=== PATIENT | female | born 1980 | race Caucasian/White ===

== ENCOUNTER → 2017-05-21 | Outpatient (CLI) | payer OTHER | LOC: FIMAGING 11:32 | PROVIDERS: ATTEND Obstetrics & Gynecology | DX: O09.522 Supervision of elderly multigravida, second trimester (principal); Z3A.19 19 weeks gestation of pregnancy ==

== ENCOUNTER → 2017-08-03 | Outpatient (CLI) | payer OTHER | LOC: FIMAGING 08:46 | PROVIDERS: ATTEND Obstetrics & Gynecology | DX: O09.523 Supervision of elderly multigravida, third trimester (principal); Z3A.30 30 weeks gestation of pregnancy ==

== ENCOUNTER 2017-10-09 05:03 | Inpatient (IN) | payer OTHER ==
[2017-10-09] MEDS ORDERED: TERBUTALINE SULFATE 1 MG/ML VIAL IV PRN (05:19)
[2017-10-09] MEDS ORDERED: OLIVE OIL 118 ML BTL MISC PRN (05:19)
[2017-10-09] MEDS ORDERED: OXYTOCIN 20 UNIT in LR 1,000 ML IV PRN (05:19)
[2017-10-09] MEDS ORDERED: LR 1,000 ML IV PRN (05:19)
[2017-10-09] MEDS ORDERED: IBUPROFEN 600 MG TAB PO PRN (05:19)
[2017-10-09] MEDS ORDERED: EPSOM SALT 454 GM TP PRN (05:19)
[2017-10-09] MEDS ORDERED: LIDOCAINE 1% 300 MG/30 ML SDV ONE (05:38)
[2017-10-09] MEDS ORDERED: OLIVE OIL 118 ML BTL ONE (05:38)
[2017-10-09] MEDS ORDERED: AMMONIA AROMATIC 1 EACH AMP IH ONE (05:38)
[2017-10-09] MEDS ORDERED: OXYTOCIN 10 UNIT/ML VIAL ONE (05:38)
[2017-10-09] MEDS ORDERED: MISOPROSTOL 200 MCG TAB ONE (05:39)
[2017-10-09 05:42] LABS: PLATELET COUNT 152 10^3/uL (150-400)
[2017-10-09] MEDS ORDERED: fentaNYL 100 MCG/2 ML INJ ONE (05:54)
[2017-10-09] MEDS ORDERED: BUPIVACAINE 0.25% 30 ML SDV ONE (05:55)
[2017-10-09] MEDS ORDERED: PHENYLEPHRINE HCL 100 MCG/ML SYR ONE (05:55)
[2017-10-09] MEDS ORDERED: fentaNYL 2MCG/ML/BUP 0.1% RTU 100 ML BAG EP ONE (05:56)
--- NOTE | 2017-10-09 06:45 | PREANESOB ---
Obstetric Pre-Anesthesia Info - General Info Proposed Procedure: Labor Epidural : 3 Para: 2 CAIN: 10/09/17 Gestational Age: 40 week(s) and 0 day(s) - Info Status: Full Term Monitors: External - Labor Status Cervical Dilation per last OB SVE: 8 Amniotic Fluid Color: Clear PIH: No Magnesium Sulfate in Use: No Indications for Labor Analgesia: Pain Control Labor Epidural: Yes, Proposed Anesthesia Allergies/Adverse Reactions: Allergy/AdvReac Type Severity Reaction Status Date / Time No Known Allergies Allergy Unverified 10/09/17 05:18 Visit Medications: Generic Name Dose Route Start Last Admin Trade Name Freq PRN Reason Stop Dose Admin Lactated Ringer's 1,000 mls @ 0 mls/hr 10/09/17 05:19 Lr IV 10/10/17 05:18 PRN PRN SEE PROTOCOL CONDITIONS Protocol Per Protocol Oxytocin 20 unit/ Lactated 1,002 mls @ 150 mls/hr 10/09/17 05:19 Ringer's IV PRN PRN Post- bleeding Ibuprofen 600 mg 10/09/17 05:19 Motrin PO 04/07/18 05:18 Q6HRS PRN post , inflammation Magnesium Sulfate 454 gm 10/09/17 05:19 Epsom Salt TP 04/07/18 05:18 Q1H PRN perineal discomfort [place] Oil 118 ml 10/09/17 05:19 Sweet Oil MISC 04/07/18 05:18 ONCE PRN perineal massage Terbutaline Sulfate 0.25 mg 10/09/17 05:19 Brethine IV 04/07/18 05:18 ONCE PRN Tachysystole Discontinued Medications Generic Name Dose Route Start Last Admin Trade Name Freq PRN Reason Stop Dose Admin Ammonia (Aromatic Spirit) Confirm 10/09/17 05:38 Ammonia Aromatic Administered 10/09/17 05:39 Dose 1 each IH .STK-MED ONE Bupivacaine HCl Confirm 10/09/17 05:55 Sensorcaine 0.25% Sdv Administered 10/09/17 05:56 Dose 30 ml .ROUTE .STK-MED ONE Fentanyl Confirm 10/09/17 05:54 Sublimaze Administered 10/09/17 05:55 Dose 100 mcg .ROUTE .STK-MED ONE Fentanyl/Bupivacaine HCl Confirm 10/09/17 05:56 Fentanyl/Bupivacaine/Ns 2 Mcg/Ml 0.1% (Premix Administered 10/09/17 05:57 Dose 100 ml EP .STK-MED ONE Lidocaine HCl Confirm 10/09/17 05:38 Lidocaine Hcl 1% Administered 10/09/17 05:39 Dose 300 mg .ROUTE .STK-MED ONE Misoprostol Confirm 10/09/17 05:39 Cytotec Administered 10/09/17 05:40 Dose 800 mcg .ROUTE .STK-MED ONE [place] Oil Confirm 10/09/17 05:38 Sweet Oil Administered 10/09/17 05:39 Dose 118 ml .ROUTE .STK-MED ONE Oxytocin Confirm 10/09/17 05:38 Pitocin Administered 10/09/17 05:39 Dose 40 unit .ROUTE .STK-MED ONE Phenylephrine HCl Confirm 10/09/17 05:55 Neosynephrine Administered 10/09/17 05:56 Dose 1,000 mcg .ROUTE .STK-MED ONE - Anesthesia History Response to Local Anesthetics: Normal Anesthesia & Operative History: No Prior Problems Family Anesthesia History: Negative - Social History Substance Use/Abuse: Denies - Vital Signs Latest Vital Signs (Nursing): See Nursing Vitals in [facility]. Height/Weight (Nursing): Height 165 cm Weight 74 kg - Focused Exam Neck exam: FROM Mallampati Score: Class 2 Mouth exam: normal dental/mouth exam Pulmonary: no respiratory distress Cardiovascular: regular rate and rhythym Labs: 10/09/17 05:33 Patient ABO/Rh A POSITIVE 10/09/17 05:33 - Plan Consent Signed and on Chart: Yes Patient/Guardian Understands and Agrees to Plan: Yes Urgent/Emergent Case: Carmel duff completed preop but documented later for safe timely pt care
[2017-10-09] MEDS ORDERED: NALOXONE HCL 0.4 MG/ML INJ IVP PRN (06:47)
[2017-10-09] MEDS ORDERED: PHENYLEPHRINE HCL 100 MCG/ML SYR IVP PRN (06:47)
[2017-10-09] MEDS ORDERED: ONDANSETRON 4 MG/2 ML VIAL IVP PRN (06:47)
--- NOTE | 2017-10-09 06:56 | POSTANESTH ---
Post Anesthetic Evaluation Cardiovascular Status: Normal, Stable, Similar to Pre-Op Cond Respiratory Status: Normal, Stable, Similar to Pre-op Cond. Level of Consciousness/Mental Status: Can Participate in Eval, Alert and Oriented Pain Control: Adequate, Prn Tx Ordered Nausea/Vomiting Control: Adequate, Prn Tx Ordered Complications Possibly Related to Anesthesia: None Noted (Patient tolerated procedure well.)
[2017-10-09] MEDS ORDERED: fentaNYL 2MCG/ML/BUP 0.1% RTU 100 ML EP SCH (07:00)
[2017-10-09] MEDS ORDERED: LR 500 ML IV SCH (07:00)
--- NOTE | 2017-10-09 07:30 | GHP ---
[f rep st] HISTORY AND PHYSICAL DATE OF ADMISSION: 10/09/2017 ADMITTING DIAGNOSES: 1. Intrauterine at 40 weeks in active labor. 2. Advanced maternal age. HISTORY OF PRESENT ILLNESS: Patient is a 37-year-old, 3, para 2-0-0-2 at 40 weeks with estimated due date 10/09/2017 by LMP 01/09/17 and consistent with an 8-week ultrasound. The patient presents with complaints of contractions that began at 0330 this am, increasing in frequency and intensity. The patient denies any leakage of fluid or vaginal bleeding. States good movement. The patient does present with her sheet rock sander, Elsie Kirkland, as well as her . The patient transferred care to [facility] at 36 weeks from [facility] secondary to history or rapid labor with G2 and worries about making it to [place]. is complicated by AMA. All genetic testing was negative. Twenty-week ultrasound was normal. The patient developed anemia of , is tolerating iron. The patient received Tdap during the . GBS culture is negative. PAST OBSTETRIC HISTORY: G1 was a forcep-assisted vaginal delivery over mediolateral episiotomy. G2 was a vacuum-assisted vaginal delivery over mediolateral episiotomy with rapid labor of 4 hours. GYNECOLOGIC HISTORY: Age of menarche 9. Cycles are regular, every 28 days for 5 days. Patient denies a history of abnormal Pap smears, or any exposure to sexually transmitted diseases. CURRENT MEDICATIONS: vitamins. DHA. Iron/ ALLERGIES: No known drug allergies. MEDICAL HISTORY: Unremarkable. SURGICAL HISTORY: T&A at 3 years of age. FAMILY HISTORY: Noncontributory. LABS: Patient is A positive. Antibody negative. HIV negative. RPR nonreactive. Rubella immune. Hepatitis B surface antigen negative. Innatal screen was negative. H/H 11.5/34.0. 1-hour Glucola 73. GBS culture negative. REVIEW OF SYSTEMS: Ten-point review of systems is negative. Pertinent positives noted in HPI. PHYSICAL EXAMINATION: ON ADMISSION, VITAL SIGNS: Stable. Patient is afebrile , well-nourished, well-developed female, alert and oriented x3. Moderate distress secondary to contractions. CARDIOVASCULAR: Regular rate and rhythm. LUNGS: Clear to auscultation bilaterally. ABDOMEN: Gravid, soft, nontender. PELVIC: On exam, she is found to be 7-8 cm, 100%, 0 station with bulging bag. EXTREMITIES: Normal to inspection without calf tenderness. On the monitor, heart tones are Category 1 tracing, baseline of 130 beats per minute. Positive accelerations. No decelerations. Moderate variability. On toco, there are contractions every 2-3 minutes. ASSESSMENT AND PLAN: The patient is a 37-year-old, 3, para 2-0-0-2 at 40 weeks, who presents in active labor. 1. Admit to Labor and Delivery for expectant management. 2. GBS is negative. No prophylactic antibiotics are needed. 3. Reviewed wish list. 4. Patient desires an epidural. 5. Anticipate normal spontaneous vaginal delivery. /[id number]/MODL MTDD
--- NOTE | 2017-10-09 09:27 | OBDEL ---
Info Type: Vaginal Presentation at Delivery: Vertex L&D Analgesia/Anesthesia Type: Epidural (Combo spinal) GBS+: No - Hospital Course Intrapartum: 10/09/17 09:23 IUP @ 40 weeks in active labor; AMA; GBS neg Indications for Delivery: Spontaneous Labor Vaginal Delivery - Delivery Provider Delivery Physician/CNM: Tamia Pierson - Labor and Delivery Onset of Contractions Date: 10/09/17 Onset of Contractions Time: 03:30 Onset of Contractions Type: Spontaneous Rupture of Membranes Date: 10/09/17 Rupture of Membranes Time: 07:00 Rupture of Membranes Type: Artificial Amniotic Fluid Color: Clear Dilation Complete Date: 10/09/17 Dilation Complete Time: 08:00 Placenta Delivery Date: 10/09/17 Placenta Delivery Time: 08:56 Total Hours of Labor: 5 Non-surgical Procedures: Amniotomy Episiotomy: Midline Repair: 3-0, Vicryl Vaginal Sponge Count Correct: Yes Vaginal Needle Count Correct: Yes Vaginal Sweep Performed: Yes EBL: 350 cc Delivery Events: None Delivery Comment: Uncomplicated over MLE; no nuchal cord. ALMA ROSA. Delayed cord clamping x 60 sec. Placenta delivered intact spontaneously with 3-vc. Data CAIN: 10/09/17 Gestational Age: 40 week(s) and 0 day(s) Castillo Delivery Date: 10/09/17 Delivery Time: 08:52 Sex of Infant: Female Score (1 Min): 9 Score (5 Min): 10 ICD10 Worksheet Patient Problems: Problems Problem Status Onset (spontaneous vaginal delivery) Acute - ICD10 Problem Qualifiers (1) (spontaneous vaginal delivery)
[2017-10-09] MEDS ORDERED: HYDROCORTISONE 0.5% CREAM TP PRN (09:31)
[2017-10-09] MEDS ORDERED: SIMETHICONE 80 MG TAB CHEW PO PRN (09:31)
[2017-10-09] MEDS: IBUPROFEN 600 MG TAB PO PRN ×2 (17:38→23:40)
[2017-10-09] MEDS: DOCUSATE SODIUM 100 MG CAP PO PRN (23:41)
[2017-10-09] MEDS: HYDROCODONE/APAP 5/325 TAB PO PRN (23:43)
[2017-10-10] MEDS: IBUPROFEN 600 MG TAB PO PRN ×3 (05:52→19:14)
[2017-10-10] MEDS: HYDROCODONE/APAP 5/325 TAB PO PRN (05:54)
[2017-10-10 07:34] VITALS: RESP 16
--- NOTE | 2017-10-10 09:27 | OBPP ---
Progress Note Assessment/Plan: Assessment: Post day 1 s/p Stable afebrile Plan: 10/10/17 09:21 Continue routine post care Subjective/ Course: 10/10/17 09:22 No complaints tolerating diet and ambulating Objective: 10/09/17 05:33 Patient ABO/Rh A POSITIVE 10/09/17 05:33 Temp Pulse Resp BP Pulse Ox 36.1 C 75 16 114/66 94 10/10/17 07:33 10/10/17 07:33 10/10/17 07:33 10/10/17 07:33 10/10/17 07:33 Uterine Position/Fundal Height: Umbilicus -2 Uterine Tone: Firm Physical Exam - Physical Exam Abdomen: normal bowel sounds, non-tender, flatus Extremities: normal range of motion, non-tender Back: Normal inspection Skin: normal color, warm/dry Neuro/Psych: no motor/sensory deficits, alert, normal mood/affect, oriented x 3
[2017-10-10] MEDS: DOCUSATE SODIUM 100 MG CAP PO PRN ×2 (10:11→19:14)
[2017-10-11] MEDS: IBUPROFEN 600 MG TAB PO PRN ×2 (01:05→07:40)
[2017-10-11] MEDS: DOCUSATE SODIUM 100 MG CAP PO PRN (07:40)
[2017-10-11] MEDS: HYDROCODONE/APAP 5/325 TAB PO PRN ×2 (07:41→11:40)
--- NOTE | 2017-10-11 07:43 | OBPP ---
Progress Note Assessment/Plan: Assessment: Post day 2 s/p Stable afebrile Ready to go home Plan: 10/10/17 09:21 Continue routine post care 10/11/17 07:34 Discharge home Follow up in clinic in two weeks Subjective/ Course: 10/10/17 09:22 No complaints tolerating diet and ambulating Objective: 10/09/17 05:33 Patient ABO/Rh A POSITIVE 10/09/17 05:33 Temp Pulse Resp BP Pulse Ox 36.1 C 73 16 111/66 94 10/10/17 20:03 10/10/17 20:03 10/10/17 20:03 10/10/17 20:03 10/10/17 07:33 Uterine Position/Fundal Height: At Umbilicus Uterine Tone: Firm Physical Exam - Physical Exam Respiratory: chest non-tender Abdomen: normal bowel sounds, non-tender, soft, flatus Skin: normal color, warm/dry Neuro/Psych: no motor/sensory deficits, alert, normal mood/affect, oriented x 3
--- NOTE | 2017-10-11 07:46 | OBGCSDC ---
General Delivery Information - General Info : 3 Para: 3 Abortions: 0 Type: Vaginal L&D Analgesia/Anesthesia Type: Epidural Admission Date: 10/09/17 Labs: Patient ABO/Rh A POSITIVE 10/09/17 05:33 Hct 39.4 % (38.0-47.0) 10/09/17 05:33 - Hospital Course Intrapartum: 10/09/17 09:23 IUP @ 40 weeks in active labor; AMA; GBS neg : 10/10/17 09:22 No complaints tolerating diet and ambulating Vaginal - Delivery Provider Delivery Physician/CNM: Tamia Pierson - Diagnosis Labor: Spontaneous Rupture of Membranes Type: Artificial Amniotic Fluid Color: Clear Episiotomy: Midline Repair: 3-0, Vicryl Delivery Events: None - Procedures Non-surgical Procedures: Amniotomy - Delivery Non-surgical Procedures: Amniotomy EBL: 350 cc [place] Data CAIN: 10/09/17 Gestational Age: 40 week(s) and 2 day(s) Castillo Delivery Date: 10/09/17 Delivery Time: 08:52 Sex of Infant: Female Score (1 Min): 9 Score (5 Min): 10 Discharge Information - Discharge Information Prescriptions: Hydrocodone/APAP 5/325 [[place] 5/325 (*)] 1 - 2 tab PO Q4HRS PRN #30 tab PRN Reason: Pain, Moderate Ibuprofen [Motrin (*)] 600 mg PO Q6HRS PRN #30 tab PRN Reason: Pain, Inflammatory Docusate Sodium [Colace 100 MG (*)] 100 mg PO BID PRN #30 cap PRN Reason: Constipation Condition: Good Instruction/Follow Up: Two Weeks
[2017-10-11 08:59] VITALS: BP 111/51; PULSE 85; TEMP 96.8; O2SAT 96
== END 2017-10-11 13:00 | disposition home or self-care (01) | DRG 775 ==
LOC: FLD 05:03 → FOB 14:56
PROVIDERS: ADMIT Advanced Practice Midwife; ATTEND Obstetrics & Gynecology
PROC: 0W8NXZZ Division of Female Perineum, External Approach (ICD-10-PCS; principal; 2017-10-09)
PROC: 10E0XZZ Delivery of Products of Conception, External Approach (ICD-10-PCS; principal; 2017-10-09)
PROC: 10907ZC Drainage of Amniotic Fluid, Therapeutic from Products of Conception, Via Natural or Artificial Opening (ICD-10-PCS; principal; 2017-10-09)
DX: O48.0 Post-term pregnancy (principal); Z3A.40 40 weeks gestation of pregnancy; Z37.0 Single live birth
CPT/HCPCS: J2370; J3010

== ENCOUNTER → 2018-09-13 | Outpatient (CLI) | payer OTHER | LOC: FIMAGING 14:32 | PROVIDERS: ATTEND Obstetrics & Gynecology | DX: Z12.31 Encounter for screening mammogram for malignant neoplasm of breast (principal) ==